=== PATIENT | male | born 1980 | race Caucasian/White ===

== ENCOUNTER 2021-05-08 08:55 | Day surgery (SDC) | payer BC, OTHER ==
[~2021-05-08 08:55] MED LIST: Bupivacaine 0.5% 50 ML MDV ONE; Lidocaine 1% with EPINEPHrine 1:100,000 50 ML MDV ONE
[2021-05-08] MEDS ORDERED: Propofol 200 MG/20 ML SDV ONE ×2 (09:00→12:37)
[2021-05-08] MEDS ORDERED: Midazolam 1 MG/ML 2 ML SDV ONE (09:00)
[2021-05-08] MEDS ORDERED: fentaNYL 100 MCG/2 ML SDV ONE (09:00)
[2021-05-08] MEDS ORDERED: Dextrose 5%-Lactated Ringers 1,000 ML IV SCH (09:30)
[2021-05-08] MEDS ORDERED: Meropenem 500 MG in Sodium Chloride 0.9% 50 ML IV ONE (10:15)
[2021-05-08] MEDS ORDERED: Meropenem 500 MG SDV ONE (12:07)
[2021-05-08] MEDS ORDERED: Lidocaine 1% with EPINEPHrine 1:100,000 50 ML MDV INJECT ONE (12:24)
[2021-05-08] MEDS ORDERED: Bupivacaine 0.5% 50 ML MDV INJECT ONE (12:24)
[2021-05-08] MEDS ORDERED: Lactated Ringers 1,000 ML ONE (12:37)
[2021-05-08] MEDS ORDERED: Meropenem 500 MG SDV IRR ONE (12:45)
[2021-05-08] MEDS ORDERED: Ketorolac 30 MG/ML SDV ONE (12:53)
[2021-05-08] MEDS ORDERED: HYDROmorphone 2 MG Tab PO PRN (14:15)
[2021-05-08] MEDS ORDERED: Sulfamethoxazole/Trimethoprim 800-160 MG Tab PO ONE (14:15)
== END 2021-05-08 14:48 | disposition home or self-care (01) ==
LOC: JP.SDS 08:55
PROVIDERS: ATTEND Surgery
DX: L72.0 Epidermal cyst (principal); E66.3 Overweight
CPT/HCPCS: 88304; A9270-GY; J1885; J2020; J2185; J2250; J2704; J3010; J3490; J7120; J7121

== ENCOUNTER 2024-09-09 08:18 | Day surgery (SDC) | payer BC ==
[~2024-09-09 08:18] MED LIST changes: -Bupivacaine 0.5% 50 ML MDV ONE; +Dexamethasone 4 MG/ML SDV ONE; +Glycopyrrolate 0.2 MG/ML 5 ML MDV ONE; -Lidocaine 1% with EPINEPHrine 1:100,000 50 ML MDV ONE; +Neostigmine Methylsulfate 10 MG/10 ML MDV ONE; +Ondansetron 4 MG/2 ML SDV ONE; +Propofol 200 MG/20 ML SDV ONE; +Rocuronium 50 MG/5 ML Vial ONE; +Succinylcholine 200 MG/10 ML MDV ONE; +fentaNYL 250 MCG/5 ML SDV ONE
[2024-09-09 08:48] LABS: HEMATOCRIT 46.8 % (38.4-49.7); HEMOGLOBIN 15.8 g/dL (12.9-16.9); MEAN CORPUSCULAR HEMOGLOBIN 30.7 pg (31.6-35.5); MEAN CORPUSCULAR HGB CONC 33.8 g/dL (31.6-35.5); MEAN CORPUSCULAR VOLUME 91.1 fL (81.4-99.0); RED BLOOD CELL COUNT 5.14 M/uL (4.14-5.76); WHITE BLOOD CELL COUNT,WBC 5.3 K/uL (3.2-11.0)
[2024-09-09 09:11] LABS: A/G RATIO 1.1 (1.2-2.2); ALANINE AMINOTRANSFERASE,ALT 48 U/L (12-78); ALKALINE PHOSPHATASE 84 U/L (46-116); ANION GAP 6.3 mmol/L (5.0-14.0); ASPARTATE AMNIOTRANSFERASE,AST 26 U/L (15-37); BILIRUBIN TOTAL 0.6 mg/dL (0.2-1.0); BLOOD UREA NITROGEN,BUN 26 mg/dL (7-18); CALCIUM 9.4 mg/dL (8.5-10.1); CARBON DIOXIDE,CO2 31 mmol/L (21-32); CHLORIDE,CL 105 mmol/L (100-108); CREATININE 1.3 mg/dL (0.8-1.3); EST CRCL DRUG DOSING (CG) 72.08 mL/min; ESTIMATED GFR 70 mL/min (>60); GLUCOSE RANDOM 115 mg/dL (74-106); POTASSIUM,K 3.9 mmol/L (3.6-5.2); PROTEIN TOTAL,TP 7.5 g/dL (6.4-8.2); SODIUM,NA 142 mmol/L (140-148)
[2024-09-09] MEDS: Lactated Ringers 1,000 ML IV SCH (09:22)
[2024-09-09] MEDS ORDERED: Ketorolac 30 MG/ML SDV ONE (11:49)
[2024-09-09] MEDS ORDERED: Lactated Ringers 1,000 ML ONE (12:47)
[2024-09-09] MEDS: Bupivacaine 0.25%/EPINEPHrine 1:200,000 30 ML SDV ONE (13:20)
[2024-09-09] MEDS: ceFAZolin 2 GM in Premix Bag 1 BAG IV ONE (13:59)
[2024-09-09] MEDS: oxyCODONE 5 MG Tab PO PRN (14:38)
== END 2024-09-09 17:25 | disposition home or self-care (01) ==
LOC: JP.SDS 08:18
PROVIDERS: ATTEND Surgery
DX: K40.20 Bilateral inguinal hernia, without obstruction or gangrene, not specified as recurrent (principal); Z87.891 Personal history of nicotine dependence
CPT/HCPCS: 36415; 49650; 80053; 85027; A9270; C1781; J0330; J0690; J1100; J1596; J1885; J2405; J2704; J2710; J3010; J7120; J3490

== ENCOUNTER 2024-09-15 23:18 | Emergency (ER) | payer BC | END 2024-09-15 23:54 | disposition home or self-care (01) | LOC: JP.ED 23:18 | DX: E86.0 Dehydration (principal); Z91.018 Allergy to other foods; Z79.899 Other long term (current) drug therapy; Z86.16 Personal history of COVID-19; Z90.49 Acquired absence of other specified parts of digestive tract | CPT/HCPCS: 99283 ==